=== PATIENT | male | born 1995 | race Caucasian/White ===

== ENCOUNTER 2020-12-19 09:50 | Emergency (ER) | payer OTHER, SELFPAY ==
[2020-12-19 09:53] VITALS: BP 136/68; PULSE 60; RESP 16; TEMP 36.4; O2SAT 98; BMI 27.3
--- NOTE | 2020-12-19 10:04 | CT_ITS ---
STUDY: CT BRAIN WITHOUT CONTRAST REASON FOR EXAM: Male, 25 years old. Closed head injury with persistent symptoms for 48 RADIATION DOSAGE (If Supplied By Facility): CTDIvol = ( 44.99 ) mGy, DLP = ( 762.36 ) mGycm TECHNIQUE: Transaxial CT imaging of the brain was performed without administration of intravenous contrast material. Individualized dose optimization techniques were used for this CT. COMPARISON: No relevant priors. FINDINGS: Normal size ventricles and extra-axial spaces for the patient''s age. Normal white matter tracts of the cerebral hemispheres. There is no intracranial hemorrhage. There are no findings of an acute ischemic infarction. Normal visualized paranasal sinuses. CT/Brain/Head without Contrast IMPRESSION: Unremarkable unenhanced CT scan of the brain. Electronically Signed: Jarocho Red MD at 10:35 EDT Tel , Service support ,
--- NOTE | 2020-12-19 10:54 | EDS_ITS ---
HPI History of Present Illness Chief Complaint: Head Injury Informant: patient and spouse/S.O. Onset/Context/Timing Onset: Days (Blunt head injury Saturday) Mechanism/Context: Blunt Injury Location: Vertex Current Severity: Mild Maximum Severity: Moderate Worsened by: Certain activities Relieved by: Nothing Associated Symptoms Associated Symptoms: Negative for Parasthesias, Weakness, Loss of function, Inability to ambulate, Loss of consciousness and Amnesia Narrative Narrative: Patient is a 25-year-old male with no sniffing past medical problems who presents after blunt head trauma that occurred Saturday at work. He states he was dazed. He does not report headache, blurred vision, trouble with sleep, difficulty concentrating, problems with balance and spouse states he is not his normal self. He states he has never had a concussion before. He is on no medication. He has no allergies. He denies neck pain, paresthesia, anesthesia or motor weakness presently or time of impact. He does report nausea without vomiting or diarrhea. He denies any other symptoms. Tetanus Immunization: 5-10 years Prior similar symptoms: No Recent Illness/Hospitalization: No PFSH PFSH no medical history no significant family history no surgical history Social History (Updated 12/19/20 @ 10:[address] Moiz Toro MD) current occupational status: employed Smoking Status: Never smoker alcohol intake: never substance use type: does not use ROS ROS ED Constitutional Constitutional ED: Denies chills, fever(s) or subjective Eyes Eyes: Reports blurry vision; Denies change in vision ENT ENT ED: Reports other Details: He denies ringing in his ears or decreased hearing. He denies epistaxis. ; Denies ear pain, rhinorrhea or sore throat Cardiovascular Cardiovascular: Denies chest pain or palpitations Respiratory/Chest Respiratory/Chest: Denies dyspnea or dyspnea on exertion Gastrointestinal Gastrointestinal: Reports nausea; Denies abdominal pain, diarrhea or vomiting Genitourinary Genitourinary ED: Denies dysuria, hematuria or urinary frequency Musculoskeletal Musculoskeletal: Denies arthralgias, back pain, myalgias or neck pain Integumentary Denies Abrasions or rash Neurologic Neurologic: Reports headache(s); Denies paresthesias or weakness Psychiatric Psychiatric: Denies anxiety or depression Hematologic/Lymphatic Hematologic/Lymphatic: Denies easy bleeding or easy bruising Allergic/Immunologic Allergic/Immunologic ED: Denies mouth swelling or tongue swelling EXAM Physical Exam Const Vital Signs: 12/19/20 09:53 Temperature 97.6 F L Temperature Source Temporal Pulse Rate 60 Respiratory Rate 16 Blood Pressure 136/68 H Blood Pressure Mean 90 Pulse Ox 98 Oxygen Delivery Method Room Air HEENT Reports TM's clear HEENT Narrative: There is no septal deviation hematoma. There is no clinical findings of infraorbital fracture. There is no hemotympanum. There is no negative aguilar sign or raccoon sign. trauma and tenderness Nose: Negative for septum abnormal Tympanic Membrane ED: Yes TM's clear Eyes PERRL and EOMs intact bilaterally General Eye ED: Yes other Other Details: There is no subconjunctival hemorrhage. Neck full ROM Neck Narrative: There is no pain no patient midline. C-spine was cleared per Nexus criteria. Resp normal respiratory effort and clear to auscultation bilaterally Cardio regular rhythm, S1 normal heart sound, S2 normal heart sound and no murmurs Rate: regular rate GI normal to inspection, nondistended, normoactive bowel sounds Back/Spine normal to inspection Extremity normal to inspection and full ROM Neuro oriented x3, CN's II-XII intact bilaterally and no sensory deficits noted Neuro Narrative: Patient had dysmetria with Romberg testing with eyes closed. Gait was observed and no ataxia was noted. He had difficulty performing tandem gait. He was able to walk on heels and toes. Lizette Coma Scale: document GCS findings Spontaneous Obeys Commands Oriented 15 Sensorium / Orientation: alert Sensory Exam: other Motor Exam: strength 5/5 throughout Plantar Reflex: Downgoing: left Psych mental status grossly normal and thought process normal Skin no rashes or lesions noted and no wounds MDM MDM MDM Narrative Medical decision making narrative: Because patient has persistent symptoms with abnormality noted on neurologic exam CT of the head was obtained. CT of the head was reviewed by me and interpreted by radiologist as negative for subdural, epidural, subarachnoid hemorrhage or intraparenchymal bleed. There is no evidence of fracture. Patient was informed that his CT of the head was normal. He was informed that his symptoms are consistent with a concussion. He was informed him symptoms should resolve. If they persist greater than 4 to 6 weeks would recommend foll ow-up. Since this occurred at work he was referred to [facility]. Radiography Diagnostic Testing: Radiology Impression Brain CT 12/19/20 10:04 IMPRESSION: Unremarkable unenhanced CT scan of the brain. Electronically Signed: Jarocho Red MD at 10:35 EDT Tel , Service support , Discharge Plan Triage Chief Complaint: Head Injury ED Provider: Moiz Toro Dx/Rx/DC Orders Clinical Impression: Closed head injury with concussion Instructions: ED Concussion Primary Care Provider: Care Physician,No Primary Referrals: Corporate,Care [GROUP OF PHYSICIANS] - 3-5 Days Care Physician,No Primary [Primary Care Provider] - Activity Restrictions/Additional Instructions: Avoid activity that make sure headache, vision or symptoms worse. Disposition Disposition: Home, self care
--- NOTE | 2020-12-19 11:03 | ED.RN ---
CALLED [facility], [facility] [employer] [phone]. VERIFIED NO DRUG SCREEN REQUIRED
[2020-12-19 11:08] VITALS: BP 124/69; PULSE 72; RESP 15; O2SAT 99
== END 2020-12-19 11:09 | disposition home or self-care (01) ==
PROVIDERS: Emergency Provider Emergency Medicine
DX: S09.90XA Unspecified injury of head, initial encounter (principal); X58.XXXA Exposure to other specified factors, initial encounter
CPT/HCPCS: 70450; 99283

== ENCOUNTER → 2021-05-09 | Outpatient (CLI) | payer OTHER, SELFPAY | END | disposition home or self-care (01) | LOC: LABSPEC 11:57 | PROVIDERS: Referring Provider Physician Assistant Surgical; Visit Provider Physician Assistant Surgical | DX: Z11.52 Encounter for screening for COVID-19 (principal) | CPT/HCPCS: 87635; U0005; U0003 ==